=== PATIENT | female | born 1985 | race Caucasian/White ===

== ENCOUNTER 2017-07-18 18:14 | Emergency (ER) | payer BC ==
[~2017-07-18] VITALS: Ht 165.1 cm; Wt 120.0 kg
[2017-07-18 18:27] VITALS: TEMP 37; Ht 165.1 cm; Wt 120.0 kg
[2017-07-18] MEDS ORDERED: KETOROLAC TROMETHAMINE 30 MG/ML VIAL IV STA ×2 (19:32→19:41)
--- NOTE | 2017-07-18 19:59 | DIAGNOSTIC IMAGING REPORT ---
CHEST ONE VIEW PORTABLE CLINICAL HISTORY: 32 years-old Female presenting with Chest Pain. TECHNIQUE: Portable upright AP view of the chest was obtained. COMPARISON: 06/13/2013. FINDINGS: Cardiomediastinal silhouette normal. Lungs and pleural spaces clear. Osseous structures normal. Upper abdomen normal. IMPRESSION: 1. No acute cardiopulmonary disease. Electronically signed by: Van Carmona M.D. 07/18/2017 7:57 PM Dictated Date/Time: 07/18/2017 7:57 PM
[2017-07-18 20:08] LABS: BASO % 0.4 %; BASO ABS # 0.03 K/uL (0-0.2); COMPLETE YES; EOS % 2.1 %; HEMATOCRIT 38.2 % (37-47); IG% 0.4 %; LYMPH % 44.1 %; LYMPH ABS # 3.35 K/uL (1.2-3.4); MEAN CELL VOLUME 85.7 fL (80-100); MEAN CORPUSCULAR HEMOGLOBIN 29.1 pg (25-34); MEAN PLATELET VOLUME 10.1 fL (7.4-10.4); MONO % 5.8 %; NEUT % 47.2 %; PLATELET COUNT 315 K/uL (130-400); RED BLOOD COUNT 4.46 M/uL (4.2-5.4); WHITE BLOOD COUNT 7.59 K/uL (4.8-10.8)
[2017-07-18 20:20] LABS: BLOOD UREA NITROGEN 9 mg/dl (7-18); BUN/CREATININE RATIO 12.7 (10-20); CALCIUM 9.6 mg/dl (8.5-10.1); CARBON DIOXIDE 26 mmol/L (21-32); CHLORIDE 106 mmol/L (98-107); CREATININE 0.73 mg/dl (0.60-1.20); GLUCOSE 79 mg/dl (70-99); POTASSIUM 3.8 mmol/L (3.5-5.1); SODIUM 139 mmol/L (136-145)
[2017-07-18] MEDS ORDERED: ALBUTEROL 0.083% NEBU SOLN 3 ML VIAL INH STA (21:18)
[2017-07-18 22:13] VITALS: BP 124/76; PULSE 78; O2SAT 98
--- NOTE | 2017-07-19 01:04 | EMERGENCY ROOM VISIT NOTE ---
History Report prepared by Parisa: Iman Sanchez Under the Supervision of: Dr. Jv Zambrano D.O. First contact with patient: 19:25 Chief Complaint: SHORTNESS OF BREATH Stated Complaint: CHEST TIGHTNESS,RACING HEART, SOB Nursing Triage Summary: pt to the ED with c/o SOB that is intermittant and chest tightness and no cough sx have been getting worse over the past day History of Present Illness The patient is a 32 year old female who presents to the Emergency Room with complaints of constant chest tightness starting 0530 this morning. The patient has had intermittent mid chest tightness and heart racing for the past few weeks. This morning when she woke up, she had the tightness again and her heart was racing. She was planning on going to the gym, but decided to stay home and go back to sleep. She was unable to go back to sleep because of the discomfort. She has not taken anything for the pain. She feels like she cannot take a full breath because of the tightness. The tightness goes up into her neck at times. She does not have any pain with deep breaths. The tightness does not worsen with twisting, turning, or bending. She seems to notice the chest tightness more when she is at rest. She notes that it does improve with exertion. She denies any hemoptysis, cough, rhinorrhea, or sore throat. She works as an insurance administrator at [employer] and does not do any heavy lifting. She denies any history of diabetes, hypertension, hyperlipidemia, CAD or sudden in her family. Cancer, or reflux. She does not smoke. She is on control. She denies any recent surgery or travel. No swelling of calfs or previous blood clots. Source of History: patient Onset: 529 this morning Position: chest (mid) Quality: other (tightness) Timing: constant Modifying Factors (Worsening): rest Associated Symptoms: + SOB, No sorethroat, No cough Note: Pt reports heart racing. Pt denies hemoptysis, rhinorrhea. Review of Systems See HPI for pertinent positives & negatives. A total of 10 systems reviewed and were otherwise negative. Past Medical & Surgical Medical Problems: (1) Body mass index 30+ - obesity Family History No pertinent family history stated. Social History Alcohol Use: none Drug Use: none Physical Exam Vital Signs Date Time Temp Pulse Resp B/P (MAP) Pulse Ox O2 Delivery O2 Flow Rate FiO2 07/18/17 22:13 78 18 124/76 98 07/18/17 21:22 78 16 131/67 99 Room Air 07/18/17 19:55 70 16 144/94 98 Room Air 07/18/17 18:27 37.0 74 18 156/103 99 Physical Exam GENERAL: sitting up in bed, disheveled, no acute distress, nontoxic EYE EXAM: normal conjunctiva OROPHARYNX: no exudate, no erythema, lips, buccal mucosa, and tongue normal and mucous membranes are moist NECK: supple, no nuchal rigidity, no adenopathy, non-tender CHEST: reproducible anterior chest wall pain LUNGS: Clear to auscultation. Normal chest wall mechanics HEART: no murmurs, S1 normal and S2 normal ABDOMEN: abdomen soft, non-tender, normo-active bowel sounds, no masses, no rebound or guarding. BACK: Back is symmetrical on inspection and there is no deformity, no midline tenderness, no CVA tenderness. SKIN: no rashes and no bruising UPPER EXTREMITIES: upper extremities are grossly normal. LOWER EXTREMITIES: No pitting edema. Calves equal bilaterally. NEURO EXAM: Normal sensorium, cranial nerves II-XII grossly intact, normal speech, no gross weakness of arms, no gross weakness of legs. Medical Decision & Procedures ER Provider Diagnostic Interpretation: Radiology results as stated below per my review and the radiologist's interpretation: CHEST ONE VIEW PORTABLE CLINICAL HISTORY: 32 years-old Female presenting with Chest Pain. TECHNIQUE: Portable upright AP view of the chest was obtained. COMPARISON: 06/13/2013. FINDINGS: Cardiomediastinal silhouette normal. Lungs and pleural spaces clear. Osseous structures normal. Upper abdomen normal. IMPRESSION: 1. No acute cardiopulmonary disease. Electronically signed by: Van Carmona M.D. 07/18/2017 7:57 PM Dictated Date/Time: 07/18/2017 7:57 PM Laboratory Results 07/18/17 19:45 Red Blood Count 4.46, Mean Corpuscular Volume 85.7, Mean Corpuscular Hemoglobin 29.1, Mean Corpuscular Hemoglobin Concent 34.0, Mean Platelet Volume 10.1, Neutrophils (%) (Auto) 47.2, Lymphocytes (%) (Auto) 44.1, Monocytes (%) (Auto) 5.8, Eosinophils (%) (Auto) 2.1, Basophils (%) (Auto) 0.4, Neutrophils # (Auto) 3.58, Lymphocytes # (Auto) 3.35, Monocytes # (Auto) 0.44, Eosinophils # (Auto) 0.16, Basophils # (Auto) 0.03 07/18/17 19:45 Test 07/18/17 19:45 White Blood Count 7.59 K/uL (4.8-10.8) Red Blood Count 4.46 M/uL (4.2-5.4) Hemoglobin 13.0 g/dL (12.0-16.0) Hematocrit 38.2 % (37-47) Mean Corpuscular Volume 85.7 fL (80-100) Mean Corpuscular Hemoglobin 29.1 pg (25-34) Mean Corpuscular Hemoglobin Concent 34.0 g/dl (32-36) Platelet Count 315 K/uL (130-400) Mean Platelet Volume 10.1 fL (7.4-10.4) Neutrophils (%) (Auto) 47.2 % Lymphocytes (%) (Auto) 44.1 % Monocytes (%) (Auto) 5.8 % Eosinophils (%) (Auto) 2.1 % Basophils (%) (Auto) 0.4 % Neutrophils # (Auto) 3.58 K/uL (1.4-6.5) Lymphocytes # (Auto) 3.35 K/uL (1.2-3.4) Monocytes # (Auto) 0.44 K/uL (0.11-0.59) Eosinophils # (Auto) 0.16 K/uL (0-0.5) Basophils # (Auto) 0.03 K/uL (0-0.2) RDW Standard Deviation 39.9 fL (36.4-46.3) RDW Coefficient of Variation 12.7 % (11.5-14.5) Immature Granulocyte % (Auto) 0.4 % Immature Granulocyte # (Auto) 0.03 K/uL (0.00-0.02) D-Dimer 350 ug/L FEU (0-500) Anion Gap 7.0 mmol/L (3-11) Est Creatinine Clear Calc Drug Dose 143.6 ml/min Estimated GFR () 126.3 Estimated GFR (Non- 109.0 BUN/Creatinine Ratio 12.7 (10-20) Calcium Level 9.6 mg/dl (8.5-10.1) Troponin I < 0.015 ng/ml (0-0.045) Laboratory results per my review. Medications Administered Medications (Trade) Dose Ordered Sig/Cortes Route Start Time Stop Time Status Last Admin Dose Admin Ketorolac Tromethamine (Toradol Inj) 30 mg NOW STAT IV 07/18/17 19:32 07/18/17 19:33 DC 07/18/17 19:54 30 MG Albuterol Sulfate (Ventolin 0.083% 2.5MG/3ML Neb) 2.5 mg NOW STAT INH 07/18/17 21:18 07/18/17 21:20 DC 07/18/17 21:36 2.5 MG ECG Indication: chest pain Rate (beats per minute): 69 Rhythm: sinus rhythm Findings: no ectopy, other (normal axis, normal intervals) ED Course ED COURSE: Vital signs were reviewed and showed normal vitals The patients medical record was reviewed The above diagnostic studies were performed and reviewed. ED treatments and interventions as stated above. 1929: The patient was evaluated in room C2B. A complete history and physical examination was performed. 1931: Toradol Inj 30 mg IV. 2116: I reevaluated the patient. Her SOB is worse so a nebulizer treatment will be ordered. 2117: Albuterol Sulfate 2.5 mg INH. 2207: Upon reevaluation, the patient is resting comfortably.I discussed my findings with the patient and she understands and agrees with the treatment plan. Based on the patients age, coexisting illnesses, exam and lab findings the decision to treat as an outpatient was made. The patient remained stable while under my care. The patient appeared well at the time of discharge. Medical Decision Differential diagnoses includes but is not limited to acute coronary syndrome, myocardial infarction, pericarditis, pulmonary embolus, aortic dissection, pneumonia, pneumothorax, musculoskeletal, shingles, esophageal. Patient is in obese 32-year-old presents to ER for chest pain associated with shortness breath. Her pain shortness of breath has been present all day today she woke up morning. Exertion improves pain. Rest makes it more noticeable. No pleuritic pain. On exam she does have her peripheral anterior chest wall pain which same pain that she's having. No recent trauma. Low risk for PE. D- dimer was negative. Troponin was negative with pain has been present greater than 8 hours. EKG was unremarkable. I favor the subcutaneous musculoskeletal in origin which is causing the shortness of breath because she is not breathing normally. Patient was attempted in regards to these findings. She was given Toradol and a neb treatment and had improvement of her symptoms. She was discharged follow-up with PCP in 24hrs as she is morbidly obese and does have a family risk factor of heart disease. Discussed with Pt concerning signs and symptoms to watch out for. Pt was instructed to follow up with their PCP and discussed with the patient their option to return to the ED at anytime for persistent or worsening symptoms. The appropriate anticipatory guidance and out- patient management, including indications for return to the emergency department , were explained at length to the patient and understood. Medication Reconcilliation Current Medication List: was personally reviewed by me Blood Pressure Screening Patient's blood pressure: Normal blood pressure Blood pressure disposition: Did not require urgent referral Impression Primary Impression: Precordial chest pain Additional Impression: Dyspnea Scribe Attestation The scribe's documentation has been prepared under my direction and personally reviewed by me in its entirety. I confirm that the note above accurately reflects all work, treatment, procedures, and medical decision making performed by me. Departure Information Dispostion Home / Self-Care Referrals Tarah Rod (PCP) Forms HOME CARE DOCUMENTATION FORM, IMPORTANT VISIT INFORMATION Patient Instructions Chest Pain - [facility], [facility] Additional Instructions Please follow up with your primary care doctor with in the next 24 hours. Any worsening of your symptoms, please return to the ED immediately. This includes any fevers greater than 100.4, worsening pain, chest pain, shortness breath, persistent nausea, vomiting, unable to eat or drink, passing out, or any other concerning signs or symptoms from your standpoint. Problem Qualifiers Additional Impression: Dyspnea Dyspnea type: unspecified Qualified Codes: R06.00 - Dyspnea, unspecified
== END 2017-07-18 22:14 | disposition home or self-care (01) ==
LOC: C.EDB 18:15 → C.EDC 22:14
DX: R07.2 Precordial pain (principal); R06.00 Dyspnea, unspecified; E66.01 Morbid (severe) obesity due to excess calories; Z68.41 Body mass index [BMI] 40.0-44.9, adult